=== PATIENT | female | born 1990 | race Caucasian/White ===

== ENCOUNTER 2018-02-14 18:14 | Emergency (ER) | payer BC ==
[2018-02-14 19:08] VITALS: BP 108/79; PULSE 88; O2SAT 99
--- NOTE | 2018-02-14 19:52 | ERPHSYRPT ---
- History of Present Illness Time Seen by Provider: 02/14/18 19:30 Source: patient Patient Subjective Stated Complaint: Pt arrives to ER with c/o fall down 4-5 stairs stating slipping and left leg bent behind her as she slid down. Pt c/o left great toe and medial aspect of foot pain. Does have minor abrasion to mendiola. Triage Nursing Assessment: does not appear to be in any distress. Able to walk with limp Physician History: PATIENT FELL DOWN 4-5 STEPS SUSTAINED INJURY TO HER LEFT GREAT TOE AND FOOT. HAS PAIN UPON WEIGHT BEARING, DENIES DEFORMITY OR BRUSING. Method of Injury: direct blow Occurred: this afternoon Quality: constant Severity of Pain-Max: moderate Severity of Pain-Current: moderate Lower Extremities Pain: foot: left, 1st toe: left Modifying Factors: Improves With: movement Associated Symptoms: unable to bear weight Allergies/Adverse Reactions: codeine Adverse Reaction (Verified 02/14/18 19:08) Home Medications: No Reportable Medications [No Reported Medications] 02/14/18 [History] Hx Tetanus, Diphtheria Vaccination/Date Given: (unknown) - Review of Systems Constitutional: No Symptoms Musculoskeletal: Injury, Joint Pain Neurological: No Symptoms - Past Medical History Pertinent Past Medical History: No - Past Surgical History Past Surgical History: No - Social History Smoking Status: Current every day smoker Exposure to second hand smoke: Yes Drug Use: none Patient Lives Alone: No - Female History Hx Now: No - Nursing Vital Signs Nursing Vital Signs: Initial Vital Signs Temperature 98.2 F 02/14/18 19:03 Pulse Rate 88 02/14/18 19:03 Respiratory Rate 16 02/14/18 19:03 Blood Pressure 108/79 02/14/18 19:03 O2 Sat by Pulse Oximetry 99 02/14/18 19:03 Pain Scale Pain Intensity 5 - Physical Exam General Appearance: no apparent distress Foot Exam: left foot: bone tenderness (TENDERNESS LEFT GREAT TOE, MID TO DISTAL 1ST METATARSAL, MINIMAL SWELLING,NO CREPITUS OR ECCHYMOSIS) SpO2 Interpretation: normal SpO2: 99 Oxygen Delivery: Room Air - Radiology Exams Left Foot X-ray Interpretation: Interpreted by me, Negative, No Fracture Ordered Tests: Active Orders 24 hr Category Date Time Status Crutches STAT Care 02/14/18 19:50 Active FOOT (MINIMUM 3 VIEWS) Stat Exams 02/14/18 19:56 Taken - Progress Progress Note: 02/14/18 20:56 PROVIDED CRUTCHES Counseled pt/family regarding: diagnosis, need for follow-up, rad results - Departure Time of Disposition: 21:00 Departure Disposition: Home Clinical Impression: CONTUSION LEFT FOOT Condition: Stable Critical Care Time: No Additional Instructions: TYLENOL OR MOTRIN NEEDED FOR PAIN. USE CRUTCHES NONWEIGHT BEARING LEFT FOOT EVERY 4 HOURS, 30 MINUTES FOR 48 HOURS. FOLLOWUP WITH YOUR PRIMARY CARE PROVIDER FOR FOLLOWUP IN 1 WEEK.
--- NOTE | 2018-02-15 09:20 | XRAY ---
Indication: Pain following fall. Comparison: None 3 nonweightbearing views of the left foot demonstrates small plantar heel spur. No other bony, articular, or soft tissue abnormalities.
== END 2018-02-14 21:04 | disposition home or self-care (01) ==
LOC: ED 18:14
DX: S90.32XA Contusion of left foot, initial encounter (principal); M79.675 Pain in left toe(s); W10.9XXA Fall (on) (from) unspecified stairs and steps, initial encounter
CPT/HCPCS: 73630; 99283